=== PATIENT | male | born 1960 | race Caucasian/White ===

== ENCOUNTER 2017-01-03 10:40 | Emergency (ER) | payer BC ==
[~2017-01-03] VITALS: Ht 177.8 cm; Wt 85.3 kg
[2017-01-03 12:25] VITALS: BP 136/90
== END 2017-01-03 12:25 | disposition home or self-care (01) ==
LOC: ED 10:40
DX: H66.93 Otitis media, unspecified, bilateral (principal); H61.23 Impacted cerumen, bilateral